=== PATIENT | female | born 1985 | race Caucasian/White ===

== ENCOUNTER 2021-10-15 17:32 | Inpatient (IN) ==
[2021-10-15 23:39] LABS: Influenza A PCR Negative (Negative); Influenza B PCR Negative (Negative); Resp. Syncytial Virus PCR Negative (Negative); SARS-CoV-2 by PCR (In House) Negative (Negative)
[2021-10-15] MEDS ORDERED: Acetaminophen 325 MG TABLET PO PRN (23:54)
[2021-10-15] MEDS ORDERED: Haloperidol Lactate 5 MG/ML VIAL IM PRN (23:54)
[2021-10-15] MEDS ORDERED: *HR* LORazepam 2 MG/ML VIAL IM PRN (23:54)
[2021-10-15] MEDS ORDERED: haloperidoL 5 MG TABLET PO PRN (23:54)
[2021-10-15] MEDS ORDERED: *HR* LORazepam 1 MG TABLET PO PRN (23:54)
[2021-10-16] MEDS: traZODone 50 MG TABLET PO PRN ×2 (01:05→20:47)
[2021-10-16] MEDS: hydrOXYzine pamoate 25 MG CAPSULE PO PRN ×3 (09:14→20:47)
[2021-10-16] MEDS ORDERED: Mag Hydrox/Al Hydrox/Simeth 30 ML UDC PO PRN (12:07)
[2021-10-16] MEDS ORDERED: MOM Conc 10 ML UD.LIQ PO PRN (12:07)
[2021-10-16] MEDS: Vitamin B Complex/Vit C/Vit E 1 EACH TABLET PO SCH (12:29)
[2021-10-16] MEDS: BuPROPion XL (24 HR) 150 MG TABLET PO SCH (12:29)
[2021-10-17] MEDS: Vitamin B Complex/Vit C/Vit E 1 EACH TABLET PO SCH (08:04)
[2021-10-17] MEDS: BuPROPion XL (24 HR) 150 MG TABLET PO SCH (08:04)
[2021-10-17] MEDS: hydrOXYzine pamoate 25 MG CAPSULE PO PRN ×2 (18:12→20:34)
[2021-10-17] MEDS: traZODone 50 MG TABLET PO PRN (20:34)
[2021-10-18] MEDS: Vitamin B Complex/Vit C/Vit E 1 EACH TABLET PO SCH (08:46)
[2021-10-18] MEDS: BuPROPion XL (24 HR) 150 MG TABLET PO SCH (08:46)
[2021-10-18 10:13] VITALS: BP 140/80; PULSE 96; TEMP 96.8; O2SAT 96
== END 2021-10-18 11:40 | disposition home or self-care (01) | DRG 885 ==
LOC: EMEROOARM 17:32 → 1ANU 23:56
PROVIDERS: ADMIT Psychiatry & Neurology Psychiatry; ATTEND Psychiatry & Neurology Psychiatry